=== PATIENT | male | born 1985 | race African-American/Black ===

== ENCOUNTER 2017-06-03 10:52 | Inpatient (IN) | payer OTHER ==
[~2017-06-03] VITALS: Ht 182.9 cm; Wt 144.6 kg
[2017-06-03 11:10] LABS: BICARBONATE 32.5 mEq/L (22-26); CARBOXY HGB 2.6 % (0-5); COMMENTS - BLOOD GASES C+; DEVICE NRBM; FI02 100 %; METHEMOGLOBIN 1.3 % (0-1.5); O2 FLOW 15 L/MIN; PCO2 49 mm Hg (35-45); PO2 133 mm Hg (80-100); SITE RL; TOTAL RESP RATE 24 resp/min; pH 7.43 (7.35-7.45)
[2017-06-03 11:19] LABS: BASOPHIL (%) 0.2 % (0-1); BASOPHIL COUNT 0.1 K/uL (0-0.1); EOSINOPHIL (%) 0.2 % (0-5); EOSINOPHIL COUNT 0.1 K/uL (0-0.3); HEMATOCRIT 38.8 % (38.0-50.0); IMMATURE GRANULOCYTE (%) 0.5 % (0.0-0.7); LYMPHOCYTE (%) 6.4 % (15-42); LYMPHOCYTE COUNT 1.4 K/uL (1.0-2.8); MCH 28.6 PG (29.0-34.0); MCHC 30.9 G/DL (30.0-36.0); MCV 92.4 FL (86-99); MONOCYTE (%) 7.1 % (3-12); MONOCYTE COUNT 1.5 K/uL (0-0.8); NEUTROPHIL (%) 85.6 % (45-76); NEUTROPHIL COUNT 18.3 K/uL (1.8-6.4); PLATELET COUNT 326 K/uL (156-360); RBC DIS.WIDTH-CV 15.1 % (11.8-14.6); RBC DIS.WIDTH-SD 51.4 % (39-53); WHITE BLOOD COUNT 21.4 K/uL (4.1-10.2)
[2017-06-03 11:27] LABS: INTER. NORMALIZED RATIO 1.1
[2017-06-03 11:29] LABS: PTT 27.1 SEC (25-37)
[2017-06-03 11:30] LABS: CHLORIDE 100 mEq/L (99-109); POTASSIUM 4.7 mEq/L (3.7-5.4); SODIUM 137 mEq/L (136-147)
[2017-06-03 11:32] LABS: GLUCOSE 97 mg/dL (70-99)
[2017-06-03 11:35] LABS: CREATININE 1.1 mg/dL (0.6-1.3); GFR ESTIMATE (CALCULATED) > 59 mL/min/ (58.99-99999)
[2017-06-03 11:36] LABS: UREA NITROGEN (BUN) 16 mg/dL (9-23)
[2017-06-03 11:44] LABS: TROP-I INTERPRETATION NEGATIVE; TROPONIN-I 0.04 ng/mL (0.0-0.30)
[2017-06-03] MEDS ORDERED: NORVASC10 MG PO (14:34)
[2017-06-03] MEDS ORDERED: CENTRUM MEN'S1 EACH PO (14:35)
[2017-06-03] MEDS ORDERED: ZESTORETIC 10-1 EAC1 PO (14:35)
[2017-06-03] MEDS ORDERED: IRON325 M1 PO (14:35)
[2017-06-03] MEDS ORDERED: VITAMIN D31000 UNI2 PO (14:35)
[2017-06-03] MEDS ORDERED: TUMS500 MG PO (14:36)
[2017-06-03] MEDS ORDERED: PRILOSEC OTC20 MG PO (14:36)
[2017-06-03] MEDS ORDERED: PROAIR HFA8.5 GM IH (14:37)
[2017-06-03] MEDS ORDERED: TYLENOL EXTRA500 MG PO (14:37)
[2017-06-03] MEDS ORDERED: AMMONIUM LACTA224 GM TP (14:37)
[2017-06-03 14:41] LABS: HIV-1/2 AB/AG COMBO Nonreactive
[2017-06-03 17:45] VITALS: BP 128/64
[2017-06-03 20:18] VITALS: BP 136/66
[2017-06-04] VITALS (7 sets, daily range): BP systolic 131–165; BP diastolic 73–85
[2017-06-04 05:47] LABS: BASOPHIL (%) 0.1 % (0-1); EOSINOPHIL (%) 0 % (0-5); HEMATOCRIT 37.4 % (38.0-50.0); IMMATURE GRANULOCYTE (%) 0.7 % (0.0-0.7); MCH 27.4 PG (29.0-34.0); MCHC 29.4 G/DL (30.0-36.0); MCV 93.3 FL (86-99); MONOCYTE (%) 8.7 % (3-12); MONOCYTE COUNT 2.1 K/uL (0-0.8); NEUTROPHIL (%) 82.5 % (45-76); NEUTROPHIL COUNT 20.2 K/uL (1.8-6.4); PLATELET COUNT 335 K/uL (156-360); RBC DIS.WIDTH-CV 15.3 % (11.8-14.6); RBC DIS.WIDTH-SD 52.7 % (39-53); RED BLOOD COUNT 4.01 M/uL (4.00-5.50); WHITE BLOOD COUNT 24.5 K/uL (4.1-10.2)
[2017-06-04 06:36] LABS: CHLORIDE 99 MEQ/L (99-109); CREATININE 0.9 MG/DL (0.6-1.3); GFR ESTIMATE (CALCULATED) > 59 mL/min/ (58.99-99999); GLUCOSE 116 mg/dL (70-99); POTASSIUM 4.7 MEQ/L (3.7-5.4); SODIUM 135 MEQ/L (136-147); UREA NITROGEN (BUN) 15 mg/dL (9-23)
[2017-06-05] VITALS (7 sets, daily range): BP systolic 139–169; BP diastolic 63–94
[2017-06-05 08:51] LABS: HEMATOCRIT 38.9 % (38.0-50.0); HEMOGLOBIN 11.3 G/DL (12.5-16.6); MCH 27.6 PG (29.0-34.0); MCV 94.9 FL (86-99); PLATELET COUNT 365 K/uL (156-360); RBC DIS.WIDTH-CV 15.4 % (11.8-14.6); RBC DIS.WIDTH-SD 53.4 % (39-53); WHITE BLOOD COUNT 15.3 K/uL (4.1-10.2)
[2017-06-05 09:27] LABS: CHLORIDE 102 MEQ/L (99-109); CREATININE 0.9 MG/DL (0.6-1.3); GFR ESTIMATE (CALCULATED) > 59 mL/min/ (58.99-99999); POTASSIUM 4.7 MEQ/L (3.7-5.4); SODIUM 140 MEQ/L (136-147); UREA NITROGEN (BUN) 12 mg/dL (9-23)
[2017-06-05 09:28] LABS: GLUCOSE 84 mg/dL (70-99)
[2017-06-05 11:26] LABS: SCL-70 (SCLERODERMA) ANTIBODY 17 U/mL (0-99)
[2017-06-06 04:21] VITALS: BP 163/79
[2017-06-06 04:49] LABS: HEMATOCRIT 37.7 % (38.0-50.0); HEMOGLOBIN 11.5 G/DL (12.5-16.6); MCH 28.2 PG (29.0-34.0); MCHC 30.5 G/DL (30.0-36.0); MCV 92.4 FL (86-99); PLATELET COUNT 371 K/uL (156-360); RBC DIS.WIDTH-CV 14.7 % (11.8-14.6); RBC DIS.WIDTH-SD 50.4 % (39-53); RED BLOOD COUNT 4.08 M/uL (4.00-5.50); WHITE BLOOD COUNT 11.3 K/uL (4.1-10.2)
[2017-06-06 04:52] LABS: CHLORIDE 100 mEq/L (99-109); POTASSIUM 4.6 mEq/L (3.7-5.4); SODIUM 141 mEq/L (136-147)
[2017-06-06 04:53] LABS: GLUCOSE 97 mg/dL (70-99)
[2017-06-06 04:57] LABS: CREATININE 0.9 mg/dL (0.6-1.3); GFR ESTIMATE (CALCULATED) > 59 mL/min/ (58.99-99999)
[2017-06-06 04:58] LABS: UREA NITROGEN (BUN) 12 mg/dL (9-23)
[2017-06-06 07:00] VITALS: BP 179/96
[2017-06-06 11:07] VITALS: BP 146/83
[2017-06-06 14:54] VITALS: BP 164/96
[2017-06-06 20:24] VITALS: BP 131/72
[2017-06-06 23:30] VITALS: BP 189/95
[2017-06-07] VITALS (7 sets, daily range): BP systolic 138–170; BP diastolic 77–92
[2017-06-07 06:20] LABS: CHLORIDE 97 MEQ/L (99-109); GFR ESTIMATE (CALCULATED) > 59 mL/min/ (58.99-99999); GLUCOSE 98 mg/dL (70-99); POTASSIUM 4.4 MEQ/L (3.7-5.4); SODIUM 139 MEQ/L (136-147); UREA NITROGEN (BUN) 13 mg/dL (9-23)
[2017-06-08 04:32] VITALS: BP 142/83
[2017-06-08 04:49] LABS: CHLORIDE 98 mEq/L (99-109); POTASSIUM 4.7 mEq/L (3.7-5.4); SODIUM 139 mEq/L (136-147)
[2017-06-08 04:51] LABS: GLUCOSE 92 mg/dL (70-99)
[2017-06-08 04:55] LABS: CREATININE 0.9 mg/dL (0.6-1.3); GFR ESTIMATE (CALCULATED) > 59 mL/min/ (58.99-99999)
[2017-06-08 04:56] LABS: UREA NITROGEN (BUN) 12 mg/dL (9-23)
[2017-06-08 08:33] VITALS: BP 155/85
[2017-06-08 11:21] VITALS: BP 130/73
[2017-06-08] MEDS ORDERED: DOXYCYCLINE HY100 M3 PO (12:33)
[2017-06-08] MEDS ORDERED: AMOX TR-K CLV1 EAC4 PO (12:33)
[2017-06-08] MEDS ORDERED: LASIX40 MG PO (12:34)
[2017-06-08] MEDS ORDERED: LOPRESSOR25 MG PO (12:34)
[2017-06-08] MEDS ORDERED: ACIDOPHILUS LA1 EACH PO (12:34)
[2017-06-08 16:35] VITALS: BP 140/88
[2017-06-08 19:40] VITALS: BP 121/58
== END 2017-06-08 20:57 | disposition home or self-care (01) | DRG 871 ==
LOC: EME 10:52 → 4EAST 13:00 → EDOF 13:00 → ENRESERV 13:02 → 4EAST 17:36 → ENRESERV 06-06 13:27 → 3EAST 06-06 14:31
PROVIDERS: Emergency Medicine; Family Medicine; Internal Medicine; Internal Medicine Pulmonary Disease
PROC: 5A09457 Assistance with Respiratory Ventilation, 24-96 Consecutive Hours, Continuous Positive Airway Pressure (ICD-10-PCS; principal; 2017-06-03)
DX: A41.9 Sepsis, unspecified organism (principal); J69.0 Pneumonitis due to inhalation of food and vomit; J96.01 Acute respiratory failure with hypoxia; I27.29 Other secondary pulmonary hypertension; I10 Essential (primary) hypertension; J44.9 Chronic obstructive pulmonary disease, unspecified; G47.30 Sleep apnea, unspecified; K21.9 Gastro-esophageal reflux disease without esophagitis; J96.00 Acute respiratory failure, unspecified whether with hypoxia or hypercapnia; I51.7 Cardiomegaly; E66.01 Morbid (severe) obesity due to excess calories; G47.33 Obstructive sleep apnea (adult) (pediatric); I27.20 Pulmonary hypertension, unspecified; I11.0 Hypertensive heart disease with heart failure; I50.810 Right heart failure, unspecified; Z68.41 Body mass index [BMI] 40.0-44.9, adult; Z87.891 Personal history of nicotine dependence; Z87.01 Personal history of pneumonia (recurrent)
CPT/HCPCS: 36600; 70450; 71045; 71275; 80048; 80202; 82784; 82803; 83605; 83880; 84484; 85025; 85027; 85379; 85610; 85730; 86021 90; 86038; 86215 90; 86235; 87040; 87070; 87205; 87389; 87449; 87502; 93005; 93306; 94640; 94640 76; 94660; 94760; 94799; 99202; 99281; 99285; J1650; J2543; J2930; J3370; J7030; J7050

== ENCOUNTER → 2017-09-23 | Outpatient (CLI) | payer OTHER ==
[~2017-09-23] MED LIST: ACIDOPHILUS LA1 EACH PO; AMMONIUM LACTA224 GM TP; AMOX TR-K CLV1 EAC4 PO; CENTRUM MEN'S1 EACH PO; DOXYCYCLINE HY100 M3 PO; IRON325 M1 PO; LASIX40 MG PO; LOPRESSOR25 MG PO; NORVASC10 MG PO; PRILOSEC OTC20 MG PO; PROAIR HFA8.5 GM IH; TUMS500 MG PO; TYLENOL EXTRA500 MG PO; VITAMIN D31000 UNI2 PO; ZESTORETIC 10-1 EAC1 PO
== END | disposition home or self-care (01) ==
LOC: RAD 10:36
DX: R91.8 Other nonspecific abnormal finding of lung field (principal)
CPT/HCPCS: 71250

== ENCOUNTER → 2017-10-16 | Outpatient (CLI) | payer OTHER | END | disposition home or self-care (01) | LOC: NUC 10:40 | DX: R09.02 Hypoxemia (principal); R93.8 Abnormal findings on diagnostic imaging of other specified body structures | CPT/HCPCS: 71046; 78582; A9540; A9567 ==